=== PATIENT | female | born 2005 | race Caucasian/White ===

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

== ENCOUNTER 2024-03-12 13:45 | Outpatient (CLI) | payer BC, SELFPAY ==
--- NOTE | ~2024-03-12 | MR_ITS ---
EXAMINATION: MR thoracic spine wo con DATE: 03/12/2024 14:44 INDICATION: Back pain. Radiculopathy. TECHNIQUE: Magnetic resonance imaging (MRI) of the thoracic spine was performed without intravenous c ontrast. COMPARISON: None FINDINGS: Alignment is normal. There are Schmorl's nodes from T9-T10 through T11-T12. There is mildly decreased disc height at T5-T6, T7-T8, and T8-T9. At T5-T6, there is a right central protrusion with mild central canal stenosis. There is multilevel mild facet joint osteoarthritis. No neural foramina l stenosis. The spinal cord signal intensity is normal. The conus medullaris is at L1-L2. IMPRESSION: 1. Mild thoracic spondylosis. Reviewed, dictated and finalized at location A. AN SALES CONSULTANT
--- NOTE | ~2024-03-12 | MR_ITS ---
EXAMINATION: MR lumbar spine wo con DATE: 03/12/2024 14:50 INDICATION: Lumbar radiculopathy and pain. TECHNIQUE: Magnetic resonance imaging (MRI) of the lumbar spine was performed without intravenous con trast. Sequences included sagittal T2-weighted FSE, sagittal T2-weighted FS FSE, sagittal T1-weighted FSE, and axial T2-weighted FSE. COMPARISON: Lumbar spine MRI 12/12/2021 FINDINGS: Alignment is normal. Vertebral body heights and intervertebral disc heights are normal. The distal spinal cord signal intensity is normal. The conus medullaris is at L1-L2. The following disc levels are specifically discussed: L1-L2: The disc does not extend beyond the endplate margin. There is mild right facet joint osteoarth ritis. There is no neural foraminal stenosis. There is no central canal stenosis. L2-L3: The disc does not extend beyond the endplate margin. There is mild bilateral facet joint osteo arthritis. There is no neural foraminal stenosis. There is no central canal stenosis. L3-L4: The disc does not extend beyond the endplate margin. There is mild bilateral facet joint osteo arthritis. There is no neural foraminal stenosis. There is no central canal stenosis. L4-L5: The disc does not extend beyond the endplate margin. There is severe bilateral facet joint ost eoarthritis. There is no neural foraminal stenosis. There is no central canal stenosis. L5-S1: The disc does not extend beyond the endplate margin. There is mild bilateral facet joint osteo arthritis. There is no neural foraminal stenosis. There is no central canal stenosis. IMPRESSION: 1. Lumbar facet joint osteoarthritis. Reviewed, dictated and finalized at location A. [employer] ARCHIVIST
== END 2024-03-12 13:46 | disposition home or self-care (01) ==
PROVIDERS: PCP Nurse Practitioner Family
DX: M47.24 Other spondylosis with radiculopathy, thoracic region (principal); M51.369 Other intervertebral disc degeneration, lumbar region without mention of lumbar back pain or lower extremity pain
CPT/HCPCS: 72146; 72148

== ENCOUNTER 2024-03-18 08:59 | Outpatient (CLI) | payer BC, SELFPAY ==
--- NOTE | ~2024-03-18 | US_ITS ---
EXAMINATION: US abdomen complete DATE: 03/18/2024 10:20 INDICATION: Right upper quadrant abdominal pain TECHNIQUE: Multiple grayscale and Doppler ultrasound images of the abdomen were obtained. COMPARISON: 07/05/20 FINDINGS: The pancreatic head and body are normal in appearance. The pancreatic tail is not visualized. Visual ized cephalad to mid aorta and inferior vena cava are normal. Liver has normal echogenicity and conto ur, with a smooth surface. No liver lesion identified. No intrahepatic biliary duct dilation suspecte d. Portal venous flow was seen in the hepatopetal, normal direction and has normal Doppler waveform. The gallbladder is normal in appearance. There is no cholelithiasis. The common bile duct measures 3 mm, which is normal. There is normal renal contour and echogenicity bilaterally. The right kidney me asures 10.2 x 4.0 x 4.5 cm and the left 9.9 x 4.1 x 4.3 cm. There are no focal renal lesions identif ied. No evident shadowing nephrolithiasis. There is no hydronephrosis. Normal spleen measuring 10.3 c m in maximal length. IMPRESSION: 1. Normal abdominal ultrasound. Reviewed, dictated and finalized at location B. ROP SYSTEMS TECHNICIAN
== END 2024-03-18 09:00 | disposition home or self-care (01) ==
PROVIDERS: PCP Nurse Practitioner Family; Visit Provider Obstetrics & Gynecology
DX: R10.11 Right upper quadrant pain (principal)
CPT/HCPCS: 76700

== ENCOUNTER 2025-01-27 08:39 | Emergency (ER) | payer BC, SELFPAY ==
[2025-01-27 08:53] VITALS: BP 127/86; PULSE 148; RESP 16; TEMP 36.6; O2SAT 100
[2025-01-27 09:03] LABS: EDSTREPNEGPOS1 Negative (Negative)
[2025-01-27 09:22] LABS: EDMONONEGPOS Negative (Negative)
--- NOTE | 2025-01-27 09:36 | ED.URI ---
HPI - URI/Sore Throat General Chief Complaint: Upper Respiratory Infection Stated Complaint: Fever, swollen lymph nodes Time Seen by Provider: 01/27/25 09:00 Source: patient and RN notes reviewed Mode of arrival: ambulatory Limitations: no limitations History of Present Illness HPI Narrative: 19-year-old female presents [facility] complaining of sore throat, swollen tonsils, swollen lymph nodes, and fevers for 2 days. Denies any other upper respiratory symptoms cough, chest pain, difficulty breathing, dysphagia, nausea vomiting, diarrhea, abdominal pain, any other symptoms. Patient says she was treated for an ear infection or this month with Augmentin said her symptoms since have fully resolved. Patient reports a history of anxiety. She takes escitalopram and propanolol for it. Patient has been taking Motrin to help with symptoms. Related Data Home Medications ?Medication ?Instructions ?Recorded ?Confirmed ?Last Taken ?Type escitalopram oxalate 5 mg tablet mg 01/27/25 Unknown History Allergies Allergy/AdvReac Type Severity Reaction Status Date / Time No Known Allergies Allergy Verified 01/27/25 08:50 Review of Systems Review of Systems: CONSTITUTIONAL: Positive for fevers. Negative for body aches, chills, or sweats. EYES: Denies visual changes, redness, or discharge. ENT: Denies rhinorrhea, congestion, dysphagia, or otalgia. Positive for sore throat. CARDIOVASCULAR: Denies chest pain, palpitations, or edema. RESPIRATORY: Denies cough or dyspnea. GASTROINTESTINAL: Denies abdominal pain, nausea, vomiting, or diarrhea. GENITOURINARY: Denies dysuria or hematuria. SKIN: Denies rash or itching. MUSCULOSKELETAL: Denies back pain, joint pain, or myalgia. NEUROLOGIC: Denies headache, numbness, or weakness. PSYCHIATRIC: Denies anxiety or depression. All other systems reviewed are negative, except as documented in HPI. [facility] Past Medical History Medical History Encounter for Nexplanon removal 07/27/2020 Family History Family History Other Diabetes mellitus Heart disease Hypertension Social History Social History Smoking status: Never smoker Alcohol intake: never Substance use: never Substance use type: does not use Lack of Transportation: No Lack of Food: Never True Current Housing: I Have Housing Concerned About Future Housing: No Difficulty Paying Gas/Electric Bills: No Difficulty Paying for Meds: No Currently Unemployed: No Education: High School Diploma/GED Difficulty w/ Childcare or Family Care: No Living arrangements: with family Occupation/Education: occupation 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 There is no relevant family history pertinent to the patient complaint. Exam Narrative: GENERAL: This is a well-nourished, well-developed adult, in no apparent distress. They are non ill-appearing, nontoxic appearing. HEAD: normocephalic, atraumatic. EYES: Sclera clear/white. Conjunctiva normal. Vision is grossly intact. Extraocular movements intact EARS: External ears normal, auditory canals clear and without drainage, TMs normal without perforation. Hearing grossly intact. NOSE: External nose normal with no obvious nasal discharge, nasal turbinates without redness, no rhinorrhea. THROAT: Mucous membranes moist, posterior pharynx erythematous. Tonsils erythematous with exudate, red and patchy. Uvula midline. NECK: Neck supple, tender moderate cervical lymphadenopathy, no masses or thyromegaly. CARDIOVASCULAR: Tachycardic rate and rhythm without murmurs, gallops, or rubs. RESPIRATORY: Clear to auscultation. Breath sounds equal bilaterally. No wheezes, rales, or rhonchi. SKIN: warm, Dry, intact with no suspicious lesions or rash, good texture and turgor. NEURO: awake, alert, and oriented to person, place and time. There were no obvious focal neurologic abnormalities. EXTREMITIES: No joint tenderness, effusion, or edema noted. BACK: Nontender without deformity. No CVA tenderness. Course Course Emergency Course: Portions of this record may have been created with voice recognition software Level of Care: Express Care Visit Vital Signs Vital signs: Vital Signs Temperature 97.9 F 01/27/25 08:53 Pulse Rate 148 H 01/27/25 08:53 Respiratory Rate 16 01/27/25 08:53 Blood Pressure 127/86 01/27/25 08:53 Pulse Oximetry 100 01/27/25 08:53 Temperature 97.9 F 01/27/25 08:53 Pulse Rate 148 H 01/27/25 08:53 Respiratory Rate 16 01/27/25 08:53 Blood Pressure 127/86 01/27/25 08:53 Pulse Oximetry 100 01/27/25 08:53 Reviewed MDM - URI/Sore Throat MDM Narrative Medical decision making narrative: Rapid strep negative. Rapid mono obtain, patient reports she is a college student, she says she goes out frequently on the weekends and shares drinks. Rapid mono also negative. Throat culture is pending. Centor score of 5. There is high suspicion for strep pharyngitis given exam findings and negative mono. Through shared decision making, patient would like to go and start antibiotic therapy before culture results. Said she was treated with Augmentin recently whilst treat her with cefdinir. Will also give her 1 time dose of dexamethasone for her pain. Patient is tachycardic however she reports history of anxiety and she takes propanolol as needed for anxiety, she has not taken her escitalopram today either., she reports feeling anxious. Patient nontoxic appearing, no apparent distress, patient's vital signs hemodynamically stable, afebrile. Discussed physical exam findings. Advised supportive measures and signs/symptoms to go to the ER. Pt is appropriate for outpt treatment and f/u. Differential Diagnosis Differential diagnosis: Likely upper respiratory infection, viral infection, pharyngitis and other (Tonsillitis,) Lab Data Attestation: I reviewed the patient's lab results. Labs: Lab Results 01/27/25 01/27/25 Range/Units 09:01 09:20 POC Monoscreen Negative (Negative) POC Grp A Strep Screen Negative (Negative) Critical Care Time Critical Care Time Critical Care Time: No Discharge Plan Discharge Clinical Impression: Acute infective tonsillitis Qualifiers: Pharyngitis/tonsillitis etiology: unspecified etiology Qualified Code(s): J03.90 - Acute tonsillitis, unspecified Patient Disposition: Home Condition: Stable Instructions: Antibiotic Form, Tonsillitis (ED) Additional Instructions: Your rapid mono was negative. Throat culture be sent off if it is positive for strep you will be contacted. Please take the cefdinir as prescribed until gone. Take dexamethasone as directed. You will be contagious for 24 hours after starting the medication. ?After 24 hours on antibiotics throw tooth brush away and start using a new one. Wash your sheets and cup/water bottle that is used daily. Do not share drinks. Take Tylenol or Ibuprofen as needed pain or fever, follow instructions on the bottle. ?Rest and stay hydrated. ?Follow up with your PCP in 3 days if symptoms are not improving. ?Go to the ER immediately if you develop worsening symptoms such as shortness of breath, chest pain, vomiting, difficulty swallowing, or any serious concerns. ? Patient Language: Irish Prescriptions: New cefdinir 300 mg capsule 300 mg PO Q12H 10 Days Qty: 20 0RF dexamethasone 6 mg tablet 6 mg PO ONCE 1 Days Qty: 1 0RF No Action escitalopram oxalate 5 mg tablet drospirenone-ethinyl estradiol [Vestura (28)] 3-0.02 mg tablet 1 tablet PO DAILY Qty: 84 0RF Follow-up/Referrals: Nathaniel,Carmel Baeza MD [Primary Care Provider] Time of Disposition: 09:25
== END 2025-01-27 09:28 | disposition home or self-care (01) ==
PROVIDERS: PCP Family Medicine
DX: J03.90 Acute tonsillitis, unspecified (principal)
CPT/HCPCS: 36416; 86308; 87081; 87880; 99213; G0463